=== PATIENT | female | born 1960 | race Asian ===

== ENCOUNTER 2018-07-05 03:54 | Emergency (ER) | payer SELFPAY ==
[~2018-07-05] VITALS: Ht 152.4 cm; Wt 66.4 kg
[2018-07-05] MEDS ORDERED: ATOR20TA86 PO (04:10)
[2018-07-05] MEDS ORDERED: ASPI81TA39 PO (04:10)
[2018-07-05] MEDS ORDERED: METF-960 PO (04:10)
[2018-07-05] MEDS ORDERED: TICA90TA PO (04:10)
[2018-07-05] MEDS ORDERED: LOSA25TA16 PO (04:10)
[2018-07-05] MEDS ORDERED: NITR0.3T SL (04:10)
[2018-07-05 04:24] LABS: GLUCOSE,POINT OF CARE 145 MG/DL (70-110)
[2018-07-05] MEDS ORDERED: ALPRAZolam 0.25 MG TABLET PO ONE (04:30)
[2018-07-05] MEDS ORDERED: ALPRAZolam 0.5 MG TABLET PO ONE (04:45)
[2018-07-05 05:07] VITALS: BP 132/78
== END 2018-07-05 05:36 | disposition home or self-care (01) ==
LOC: EMS 03:58
DX: I11.0 Hypertensive heart disease with heart failure (principal); I50.9 Heart failure, unspecified; F41.9 Anxiety disorder, unspecified; E11.9 Type 2 diabetes mellitus without complications; I25.2 Old myocardial infarction; Z88.5 Allergy status to narcotic agent; Z88.6 Allergy status to analgesic agent; Z79.84 Long term (current) use of oral hypoglycemic drugs

== ENCOUNTER 2018-10-23 04:00 | Emergency (ER) | payer OTHER ==
[~2018-10-23] VITALS: Ht 152.4 cm; Wt 65.9 kg
[~2018-10-23 04:00] MED LIST: ASPI81TA39 PO; ATOR20TA86 PO; LOSA25TA41 PO; METF-960 PO; NITR0.3T SL; TICA90TA PO
[2018-10-23 05:19] LABS: ALANINE AMINOTRANSFERASE 27 U/L (12-78); ALBUMIN 4.3 g/dL (3.4-5.0); ALKALINE PHOSPHATASE 63 U/L (46-116); ANION GAP 10 mmol/L (8-16); ASPARTATE AMINOTRANSFERASE 22 U/L (15-37); BILIRUBIN,TOTAL 0.6 mg/dL (0.1-1.0); CALCIUM, TOTAL 10.3 mg/dL (8.8-10.5); CARBON DIOXIDE 23 mmol/L (22-29); CHLORIDE 102 mmol/L (98-107); GLOMERULAR FILTR. RATE CALC > 60 mL/min (>60); GLUCOSE,RANDOM 135 mg/dL (70-110); POTASSIUM 4.1 mmol/L (3.5-5.1); SODIUM SERUM 135 mmol/L (136-145); TOTAL PROTEIN, SERUM 7.4 g/dL (6.4-8.2)
[2018-10-23 05:28] LABS: UREA NITROGEN, BLOOD 24 mg/dL (7-18)
[2018-10-23 05:41] LABS: BASOPHILS % (AUTO) 0.7 % (0.0-2.0); EOSINOPHILS % (AUTO) 4.4 % (1.0-6.0); HEMATOCRIT 35.5 % (36-46); HEMOGLOBIN 12.3 g/dL (12.0-16.0); LYMPHOCYTES # (AUTO) 1.5 K/uL (1.0-4.8); LYMPHOCYTES % (AUTO) 21.8 % (22.0-44.0); MEAN CORPUSCULAR HEMOGLOBIN 28.6 pg (26.0-34.0); MEAN CORPUSCULAR HGB CONC 34.6 G/dL (31.0-37.0); MEAN CORPUSCULAR VOLUME 83 fL (80-100); MONOCYTES # (AUTO) 0.5 K/uL (0.1-1.0); MONOCYTES % (AUTO) 6.9 % (2.0-9.0); NEUTROPHILS # (AUTO) 4.5 K/uL (1.8-7.7); NEUTROPHILS % (AUTO) 66.2 % (40.0-70.0); PLATELET COUNT (AUTO) 112 K/uL (150-450); RED BLOOD CELL COUNT(AUTO) 4.28 MIL/uL (4.00-5.20); RED CELL DISTRIBUTION WIDTH 13.3 % (11.5-14.5)
[2018-10-23 06:01] LABS: B-TYPE NATRIURETIC PEPTIDE 31 pg/mL (0-100)
[2018-10-23 06:16] VITALS: BP 138/70
== END 2018-10-23 08:24 | disposition left against medical advice (07) ==
LOC: EMS 04:02
DX: R07.9 Chest pain, unspecified (principal); I11.0 Hypertensive heart disease with heart failure; I50.9 Heart failure, unspecified; E11.9 Type 2 diabetes mellitus without complications; I25.2 Old myocardial infarction; Z79.899 Other long term (current) drug therapy; Z88.6 Allergy status to analgesic agent; Z88.5 Allergy status to narcotic agent; Z88.8 Allergy status to other drugs, medicaments and biological substances
CPT/HCPCS: 93005

== ENCOUNTER 2019-06-14 22:22 | Emergency (ER) | payer MEDICAID, OTHER ==
[~2019-06-14] VITALS: Ht 152.4 cm; Wt 59.1 kg
[~2019-06-14 22:22] MED LIST changes: +CITA10TA68 PO; +LEVO25TA9 PO; +LEVO500 PO
[2019-06-14 23:07] VITALS: BP 145/80
[2019-06-15 13:17] LABS: GLUCOSE,POINT OF CARE 106 MG/DL (70-110)
== END 2019-06-14 23:29 | disposition home or self-care (01) ==
LOC: EMS 22:23
DX: S40.011A Contusion of right shoulder, initial encounter (principal); I11.0 Hypertensive heart disease with heart failure; I50.9 Heart failure, unspecified; E11.9 Type 2 diabetes mellitus without complications; Z90.49 Acquired absence of other specified parts of digestive tract; Z88.6 Allergy status to analgesic agent; Z88.8 Allergy status to other drugs, medicaments and biological substances; Z79.84 Long term (current) use of oral hypoglycemic drugs; Z79.82 Long term (current) use of aspirin; W19.XXXA Unspecified fall, initial encounter; Y93.89 Activity, other specified; Y92.89 Other specified places as the place of occurrence of the external cause; Y99.8 Other external cause status

== ENCOUNTER 2019-06-21 22:13 | Emergency (ER) | payer OTHER ==
[~2019-06-21] VITALS: Ht 152.4 cm; Wt 59.1 kg
[2019-06-21 22:52] LABS: GLUCOSE,POINT OF CARE 158 MG/DL (70-110)
[2019-06-22 00:39] LABS: BASOPHILS % (AUTO) 0.5 % (0.0-2.0); HEMATOCRIT 32.1 % (36-46); HEMOGLOBIN 10.7 g/dL (12.0-16.0); LYMPHOCYTES # (AUTO) 1.3 K/uL (1.0-4.8); LYMPHOCYTES % (AUTO) 23.1 % (22.0-44.0); MEAN CORPUSCULAR HEMOGLOBIN 27.5 pg (26.0-34.0); MEAN CORPUSCULAR HGB CONC 33.2 G/dL (31.0-37.0); MEAN CORPUSCULAR VOLUME 83 fL (80-100); MONOCYTES # (AUTO) 0.4 K/uL (0.1-1.0); MONOCYTES % (AUTO) 7.8 % (2.0-9.0); NEUTROPHILS # (AUTO) 3.7 K/uL (1.8-7.7); NEUTROPHILS % (AUTO) 64.6 % (40.0-70.0); PLATELET COUNT (AUTO) 169 K/uL (150-450); RED BLOOD CELL COUNT(AUTO) 3.88 MIL/uL (4.00-5.20); RED CELL DISTRIBUTION WIDTH 13.8 % (11.5-14.5)
[2019-06-22 01:17] LABS: ANION GAP 9 mmol/L (8-16); CALCIUM, TOTAL 9.8 mg/dL (8.8-10.5); CARBON DIOXIDE 27 mmol/L (22-29); CHLORIDE 107 mmol/L (98-107); CREATININE 0.82 mg/dL (0.60-1.30); GLOMERULAR FILTR. RATE CALC > 60 mL/min (>60); GLUCOSE,RANDOM 98 mg/dL (70-110); POTASSIUM 4.4 mmol/L (3.5-5.1); SODIUM SERUM 143 mmol/L (136-145); UREA NITROGEN, BLOOD 17 mg/dL (7-18)
[2019-06-22 01:22] LABS: ALANINE AMINOTRANSFERASE 23 U/L (12-78); ALBUMIN 3.5 g/dL (3.4-5.0); ALKALINE PHOSPHATASE 57 U/L (46-116); ASPARTATE AMINOTRANSFERASE 17 U/L (15-37); BILIRUBIN,TOTAL 0.9 mg/dL (0.1-1.0); TOTAL PROTEIN, SERUM 7.3 g/dL (6.4-8.2)
[2019-06-22 01:44] VITALS: BP 187/88
== END 2019-06-22 02:00 | disposition home or self-care (01) ==
LOC: EMS 22:14
DX: R60.9 Edema, unspecified (principal); M79.641 Pain in right hand; E11.9 Type 2 diabetes mellitus without complications; I11.0 Hypertensive heart disease with heart failure; I50.9 Heart failure, unspecified; I25.2 Old myocardial infarction; Z90.49 Acquired absence of other specified parts of digestive tract; Z79.82 Long term (current) use of aspirin; Z79.899 Other long term (current) drug therapy; Z88.5 Allergy status to narcotic agent; Z88.6 Allergy status to analgesic agent
CPT/HCPCS: 93971

== ENCOUNTER 2022-05-11 09:59 | Emergency (ER) | payer OTHER ==
[~2022-05-11] VITALS: Ht 162.6 cm; Wt 68.6 kg
[~2022-05-11 09:59] MED LIST changes: -CITA10TA68 PO; -LEVO500 PO; +LOSA-381 PO; -LOSA25TA41 PO; +METF-1211 PO; -METF-960 PO; -NITR0.3T SL
[2022-05-11 10:38] VITALS: BP 161/72
== END 2022-05-11 13:33 | disposition left against medical advice (07) ==
LOC: EMS 09:59
DX: I10 Essential (primary) hypertension (principal); E11.9 Type 2 diabetes mellitus without complications; Z88.6 Allergy status to analgesic agent; Z88.8 Allergy status to other drugs, medicaments and biological substances; Z90.49 Acquired absence of other specified parts of digestive tract; Z98.890 Other specified postprocedural states
CPT/HCPCS: 99283